=== PATIENT | male | born 2000 | race Caucasian/White ===

== ENCOUNTER 2024-10-03 07:21 | Emergency (ER) | payer SELFPAY ==
[2024-10-03 07:26] VITALS: BP 118/69; PULSE 100; RESP 17; TEMP 36.6; O2SAT 97; BMI 22.2
== END 2024-10-03 07:31 | disposition home or self-care (01) ==
PROVIDERS: Emergency Provider Emergency Medicine
DX: L02.01 Cutaneous abscess of face (principal)
CPT/HCPCS: 87070; 87147; 87205; 99281; 99283